=== PATIENT | female | born 1980 | race Caucasian/White ===

== ENCOUNTER 2017-03-31 17:44 | Emergency (ER) | payer MEDICAID ==
--- NOTE | 2017-04-04 08:56 | ER ---
ADMIT: 03/31/2017 RM/LOC: ER [facility] MR#: [id number] [facility] [address] [place], [place] [id number] [place] [address] [place] [address] Emergency Room Report SEX: F AGE: 36 : 1980 DATE: 03/31/2017 TIME: 1744 hours. Please refer to my T-sheet for complete H and P. HISTORY OF PRESENT ILLNESS: Briefly, the patient is a 36-year-old, said she is around six weeks now, she has been feeling nausea during the whole thing. She has not seen her OB, has not followed up, but she is tired and feels nauseous. She is having no pain. She is not for sure she is , she checked a test, thought away, she want that confirmed, and is here for evaluation. PHYSICAL EXAMINATION: VITAL SIGNS: Blood pressure 106/70, pulse 63, respirations 16, temp 97.5, sat 99%. GENERAL: No acute distress. HEENT: Grossly normal. ABDOMEN: Soft. No rebound. No guarding. SKIN: No rash. EMERGENCY DEPARTMENT COURSE: I checked a , it was positive. UA was negative except 2 red blood cells. We gave her Zofran. She has improved, and ready for discharge. ASSESSMENT: Nausea with and wanted a confirmed. PLAN: Fluids and Tylenol as needed. Return if worse. Tracyjerrod, wrote her a script. I want her to call Dr. Man and make an appointment for tomorrow. Ernesto Torres MD/ rosanna JOB #: [id number] CC: Ernesto Torres MD, Attending Physician Cee Man MD, Family Physician
== END 2017-03-31 19:00 | disposition home or self-care (01) ==
LOC: ER 17:44
DX: O99.89 Other specified diseases and conditions complicating pregnancy, childbirth and the puerperium (principal); R11.0 Nausea